=== PATIENT | male | born 2000 | race Caucasian/White ===

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

== ENCOUNTER 2023-06-17 23:39 | Observation (INO) ==
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
[2023-06-18] MEDS: ceFAZolin 2000MG 2,000 MG/15 ML SYR IV STA (00:48)
[2023-06-18 01:04] LABS: Basophils # (auto) 0.13 K/uL (0.00-0.20); Basophils % (auto) 1.8 %; Eosinophils # (auto) 0.64 K/uL (0.00-0.50); Hemoglobin 15.6 g/dl (14.0-18.0); Immature Granulocytes # (auto) 0.02 K/uL (0.01-0.20); Immature Granulocytes % (auto) 0.3 %; Lymphocytes % (auto) 26.7 %; Mean Corpuscular Hemoglobin 30.1 pg (25.0-34.0); Mean Corpuscular Hgb Conc 35.5 g/dL (32.0-36.0); Mean Corpuscular Volume 84.9 fL (80.0-100.0); Mean Platelet Volume 8.8 fL (9.4-12.4); Monocytes # (auto) 0.55 K/uL (0.11-0.59); Monocytes % (auto) 7.7 %; Neutrophils # (auto) 3.88 K/uL (1.40-6.50); Neutrophils % (auto) 54.5 %; Platelet Count 295 K/uL (130-400); RDW Coefficient of Variation 11.6 % (11.5-14.5); RDW Standard Deviation 35.7 fL (36.4-46.3); Red Blood Count 5.18 M/uL (4.70-6.10); White Blood Count 7.12 K/ul (4.8-10.8)
[2023-06-18 01:19] LABS: Alanine Aminotransferase 167 U/L (7-52); Albumin Globulin Ratio 1.6 (0.9-2); Albumin Level 4.7 gm/dl (3.4-5.0); Alkaline Phosphatase 109 U/L (34-104); Anion Gap 11 (3-11); Aspartate Aminotransferase 183 U/L (13-39); BUN Creatinine Ratio 10.7 (10-20); Bilirubin,Total 0.8 mg/dl (0.2-1.0); Blood Urea Nitrogen 8 mg/dl (6-23); Calcium 9.6 mg/dl (8.6-10.3); Carbon Dioxide 26 mmol/L (21-32); Chloride 102 mmol/L (98-107); Creatinine Clr Calc Pharmacy 121.6 ml/min; Est GFR (African American) > 150.0 ml/min; Est GFR (Non-African American) 131.1 ml/min; Globulin 2.9 gm/dl (2.5-4.0); Glucose 81 mg/dl (70-99(Fasting)); Potassium 3.7 mmol/L (3.5-5.1); Sodium 139 mmol/L (136-145); Total Protein 7.6 gm/dl (6.0-8.3)
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
[2023-06-18] MEDS ORDERED: POLYETHYLENE (MIRALAX) 17 GM PACK PO PRN (03:15)
[2023-06-18] MEDS ORDERED: ACETAMINOPHEN 325 MG TAB PO PRN (03:15)
[2023-06-18] MEDS: SODIUM CHLORIDE 0.9% 1,000 ML IV SCH (04:22)
[2023-06-18 07:05] LABS: Basophils % (auto) 1.2 %; Eosinophils # (auto) 0.81 K/uL (0.00-0.50); Eosinophils % (auto) 9.8 %; Hematocrit (blood only) 43.5 % (42.0-52.0); Hemoglobin 15.1 g/dl (14.0-18.0); Immature Granulocytes # (auto) 0.02 K/uL (0.01-0.20); Immature Granulocytes % (auto) 0.2 %; Lymphocytes # (auto) 1.87 K/uL (1.20-3.40); Lymphocytes % (auto) 22.6 %; Mean Corpuscular Hemoglobin 30.2 pg (25.0-34.0); Mean Corpuscular Hgb Conc 34.7 g/dL (32.0-36.0); Mean Platelet Volume 8.7 fL (9.4-12.4); Monocytes # (auto) 0.37 K/uL (0.11-0.59); Monocytes % (auto) 4.5 %; Neutrophils # (auto) 5.12 K/uL (1.40-6.50); Neutrophils % (auto) 61.7 %; Platelet Count 265 K/uL (130-400); RDW Coefficient of Variation 11.6 % (11.5-14.5); RDW Standard Deviation 37.2 fL (36.4-46.3); White Blood Count 8.29 K/ul (4.8-10.8)
--- NOTE | 2023-06-18 07:05 | XRay Report ---
XR hand LT min 3V routine CLINICAL HISTORY: infection r/o osteo. Left second finger infection. COMPARISON STUDY: Left hand 10/20/2018. FINDINGS: Mild soft tissue swelling within the left index finger. No fracture or dislocation. No radi opaque foreign bodies. No destructive changes to suggest an osteomyelitis. There is normal, healed fr acture within the distal phalanx of the left fifth finger. IMPRESSION: Mild soft tissue swelling within the left index finger. No underlying bony abnormality. ACT 112: Negative or not required by law. Electronically signed by: Amos Ivan M.D. 06/18/2023 7:04 AM
[2023-06-18 07:21] LABS: BUN Creatinine Ratio 8.6 (10-20); Calcium 9.1 mg/dl (8.6-10.3); Creatinine Clr Calc Pharmacy 112.2 ml/min; Est GFR (African American) 147.2 ml/min; Magnesium 1.9 mg/dl (1.7-2.4); Potassium 3.6 mmol/L (3.5-5.1)
[2023-06-18] MEDS: BUPRENORPHINE/NALOXONE 2/0.5MG 1 TAB SL SCH (08:59)
[2023-06-18] MEDS: ceFAZolin 2000MG 2,000 MG/15 ML SYR IV SCH (09:01)
--- NOTE | 2023-06-18 13:06 | Discharge Summary ---
Date of Service June 18, 2023 Admission HPI Per Admitting Provider 22-year-old male with history of mild persistent asthma and on buprenorphine/naloxone for history of opioid use presents with a left hand infection. Couple of days ago he injured his knuckle of his first left finger with the plastic object. Yesterday noticed a streak of redness going up into his arm for which reason he came to the ER. In ER he received IV Ancef. This seems to progress in the ER so we called for admission. Patient states he has some pain of the hand on movement. Denies any fevers. Resting comfortably and hemodynamically stable. No headache. No runny nose or sore throat. No cough. No chest pain or shortness of breath. No nausea. No abdominal pain. Normal bowel and bladder movements. Past med history. As mentioned above Past surgical history. None Social history. No smoking. No alcohol use. Says used to do heroin in the past. Family history. Father had liver cirrhosis due to hepatitis C. 2 brothers with asthma Admission Exam Per Admitting Provider General- Not in distress Head- atraumatic Eyes- PERRL. ENT- oropharynx clear Neck- supple, no JVD. Lungs- clear to auscultation no wheezing or crackles. Heart- regular rhythm; no murmur, no gallop. Abdomen- normal bowel sounds, soft, nontender, no distension. Extremities- no pretibial edema, wound seen on knuckle of first left finger with streak of erythema extending into fore arm Neuro- alert, oriented x 3; PERRL, no facial palsy; no dysarthria; moves extremities Principal Diagnosis Cellulitis x left hand Discharge Exam General- Not in distress Head- atraumatic Eyes- PERRL. ENT- oropharynx clear Neck- supple, no JVD. Lungs- clear to auscultation no wheezing or crackles. Heart- regular rhythm; no murmur, no gallop. Abdomen- normal bowel sounds, soft, nontender, no distension. Extremities- no pretibial edema, wound seen on knuckle of first left finger with streak of erythema extending into fore arm --> erythema has improved significantly. Neuro- alert, oriented x 3; PERRL, no facial palsy; no dysarthria; moves extremities Discharge Data Allergies Allergy/AdvReac Type Severity Reaction Status Date / Time loratadine Allergy Intermediate rash/hyper Verified 06/18/23 01:24 Consultations 06/18/23 01:15 ED Decision to Admit Stat Hospital Course (1) Cellulitis: Per prior attending with addendum: 22-year-old male with history of mild persistent asthma and on buprenorphine/naloxone for history of opioid use presents with a left hand infection. Couple of days ago he injured his knuckle of his first left finger with the plastic object. Yesterday noticed a streak of redness going up into his arm for which reason he came to the ER. In ER he received IV Ancef. This seems to progress in the ER so we called for admission. Patient states he has some pain of the hand on movement. Denies any fevers. Resting comfortably and hemodynamically stable. No headache. No runny nose or sore throat. No cough. No chest pain or shortness of breath. No nausea. No abdominal pain. Normal bowel and bladder movements. Left hand infection Left first finger infection with the streaks of erythema extending into the forearm Possible cellulitis Started on Ancef Will monitor the response History of opiate use On buprenorphine/naloxone DVT prophylaxis SCDs Disposition Observation medical floor Addendum: Patient was seen and examined at bedside as a follow-up of left hand cellulitis, erythema has improved significantly per patient. Patient reports no pain. Patient made aware that he needs to follow-up on the final results of his wound culture and he is hemodynamically stable and would like to go home today. patient will be discharged on oral antibiotic. He voiced understanding and was agreeable to plan of care. He is being discharged with following instruction at the point of discharge: Follow-up with your primary care physician within a week time and likely you will need labs CBC/CMP/magnesium/phosphorus. Your wound culture is still pending, follow-up with your PCP office within a week time and follow-up on the final results. You will be discharged on antibiotic which might or might not change upon further evaluation with your PCP office in a week time. If the wound is getting worse and or you are developing fever and chills, contact your PCP office or emergency immediately. You appear to have elevated liver function, continue follow-up with your PCP office for monitoring of your liver function and possible evaluation by your GI doctor. Take your medications as prescribed. Please make sure that you are able to get your medications today by calling your pharmacy before you leave the hospital so that your treatment continuity is not broken. Home Health Attestation I certify that this patient is under my care and that I, or a physicians perioperative assistant working with me, had a face to-face encounter that meets the home health [id number] encounter requirements with this patient. The encounter with the patient was in whole, or in part, for the following medical condition, which is the primary reason for home health care (list medical condition): I certify that, based on my findings, the following services are medically necessary home health services: My clinical findings support the need for the above services because: Further, I certify that my clinical findings support that this patient is homebound (i.e. absences from home require considerable and taxing effort and are for medical reasons or restorationist services or infrequently or of short duration when for other reasons) because: Certification for Home Health Services: Based on the above findings, I certify that this patient is confined to the home and needs intermittent [facility] care, physical therapy and/or speech therapy or continues to need occupational therapy. The patient is under my care, and I have initiated the establishment of the plan of care. This patient will be followed by a physician who will periodically review the plan of care. Total Time Total Time Spent Total Time Spent (In Minutes): 45 Discharge Plan Discharge Items Patient Disposition: Home - Self-Care Reason For Visit: LEFT HAND INFECTION Discharge Diagnosis: Cellulitis x left hand Activity: Resume your previous activity Non-emergency contact: Primary Care Provider Call non-emergency contact if: you have any medication questions, your symptoms worsen and your temperature is above 101.5 Follow-up/Referrals: Umesh Toro MD [Primary Care Provider] - (Date & Time 06/24/2023 3:20 PM Provider Umesh Toro MD Department [facility] ) Diet: Regular Addtl Attending Provider Instructions: Follow-up with your primary care physician within a week time and likely you will need labs CBC/CMP/magnesium/phosphorus. Your wound culture is still pending, follow-up with your PCP office within a week time and follow-up on the final results. You will be discharged on ant ibiotic which might or might not change upon further evaluation with your PCP office in a week time. If the wound is getting worse and or you are developing fever and chills, contact your PCP office or emergency immediately. You appear to have elevated liver function, continue follow-up with your PCP office for monitoring of your liver function and possible evaluation by your GI doctor. Take your medications as prescribed. Please make sure that you are able to get your medications today by calling your pharmacy before you leave the hospital so that your treatment continuity is not broken. Pending Studies at Discharge: Yes Stand-Alone Forms: My [facility], Smoking Cessation Medications and DC Order Prescriptions: New cephalexin 500 mg capsule 500 mg PO Q8H 7 Days Qty: 21 0RF Probiotic 3 billion cell capsule 3,000 mmu cells PO DAILY 7 Days Qty: 7 0RF Rx Instructions: administer with a meal Continued buprenorphine-naloxone 8-2 mg tablet, sublingual 0.5 tab SUBLINGUAL TID acetaminophen [Tylenol Extra Strength] 500 mg Tablet 1,000 mg PO DIRECTED PRN (Reason: Pain) Discharge Orders: Discharge Order (Routine); Ordered 06/18/23 Ordered By: Yin Longoria Admission Data Admit Date/Time: 06/18/23 02:03 Attending Provider: Yin Longoria Admit Provider: Everett Mata Primary Care Provider: Umesh Toro Other Providers: Everett Mata
== END 2023-06-18 17:59 | disposition home or self-care (01) ==
LOC: EDINP 23:39 → ED 23:39 → SUATTDRO 06-18 02:03 → EDINP 06-18 03:15
DX: Z88.8 Allergy status to other drugs, medicaments and biological substances; L03.114 Cellulitis of left upper limb